=== PATIENT | female | born 1950 | race Two or more races ===

== ENCOUNTER 2016-12-29 11:03 | Inpatient (IN) | payer OTHER ==
[~2016-12-29] VITALS: Ht 160 cm; Wt 62.8 kg
[~2016-12-29 11:03] MED LIST: ALPRAZOLAM1 MG PO; AMLODIPINE BES2.5 M1 PO; AMLODIPINE BESYL5 M1 PO; ATIVAN1 MG PO; BAY PO; HYDROCHLOROTH12.5 M2 PO; LISINOPRIL20 MG PO; ZESTRIL20 MG PO; ZOC20 PO
[2016-12-29 12:17] LABS: UA SPECIFIC GRAVITY 1.025 (1.005-1.035); microscopic required? YES; urine erythrocyte NEGATIVE (NEGATIVE)
[2016-12-29 12:58] LABS: BASOPHIL % 0.5 % (0-2); PLATELET COUNT 163 x10^3mcL (130-400)
[2016-12-29 13:07] LABS: CALCIUM 8.8 mg/dL (8.5-10.1); CARBON DIOXIDE 23.9 mmol/L (21-32); CHLORIDE SERUM 102 mmol/L (98-107); CREATININE SERUM 0.7 mg/dL (0.6-1.0); GFR1 > 60 mL/min; GLUCOSE SERUM 98 mg/dL (74-106); POTASSIUM SERUM 4.3 mmol/L (3.5-5.1); SODIUM SERUM 138 mmol/L (136-145)
[2016-12-29 13:08] LABS: T3 TOTAL 1.18 ng/mL
[2016-12-29 13:11] LABS: ALBUMIN 3.4 g/dL (3.4-5.0); ALKALINE PHOSPHATASE 70 U/L (46-116); ALT/SGPT 83 U/L (14-59); AST/SGOT 166 U/L (15-37); BILIRUBIN TOTAL 0.63 mg/dL (0.20-1.00); LIPASE 149 IU/L (73-393); TRIGLYCERIDES 174 mg/dL (<150)
[2016-12-29 13:13] LABS: CHOLESTEROL 284 mg/dL (<200); CHOLESTEROL/HDL RATIO 3.7; HDL CHOLESTEROL 77 mg/dL (40-60); TOTAL PROTEIN, SERUM 8.8 g/dL (6.4-8.2)
[2016-12-29 13:15] LABS: RED CELL DISTRIBUTION WIDTH 14.8 % (11.5-14.5)
[2016-12-29 13:18] LABS: FREE T4 0.79 ng/dL (0.76-1.46); FREE THYROXINE INDEX 2.4 ug/dL (1.4-4.5); T4(THYROXINE) 6.9 ug/dL (4.7-13.3)
[2016-12-29] MEDS ORDERED: VITAMIN-D1000 IU (16:23)
[2016-12-29] MEDS ORDERED: XANAX0.25 MG (16:24)
[2016-12-29 16:51] LABS: MAGNESIUM 1.7 mg/dL (1.8-2.4); PHOSPHOROUS 3.3 mg/dL (2.5-4.9)
[2016-12-29 17:20] LABS: AMPHETAMINE QUAL UR NONE DETECTED (NEG <=1000)
[2016-12-29 17:22] VITALS: BP 155/100
[2016-12-29 20:47] VITALS: BP 149/91
[2016-12-30] VITALS (8 sets, daily range): BP systolic 127–177; BP diastolic 88–121
[2016-12-30 06:30] LABS: BASOPHIL % 0.5 % (0-2); PLATELET COUNT 153 x10^3mcL (130-400)
[2016-12-30 06:37] LABS: CALCIUM 8.2 mg/dL (8.5-10.1); CARBON DIOXIDE 23.9 mmol/L (21-32); CHLORIDE SERUM 105 mmol/L (98-107); CREATININE SERUM 0.8 mg/dL (0.6-1.0); GFR1 > 60 mL/min; GLUCOSE SERUM 114 mg/dL (74-106); MAGNESIUM 1.7 mg/dL (1.8-2.4); PHOSPHOROUS 3.6 mg/dL (2.5-4.9); SODIUM SERUM 140 mmol/L (136-145)
[2016-12-30 06:38] LABS: RED CELL DISTRIBUTION WIDTH 14.6 % (11.5-14.5)
[2016-12-30 06:48] LABS: POTASSIUM SERUM 2.8 mmol/L (3.5-5.1)
[2016-12-31 05:35] VITALS: BP 183/117
[2016-12-31 06:58] VITALS: BP 147/113
[2016-12-31 09:23] VITALS: BP 146/93
[2016-12-31] MEDS ORDERED: ZES10 PO (13:37)
[2016-12-31 14:02] VITALS: BP 146/93
== END 2016-12-31 16:08 | disposition home or self-care (01) | DRG 551 ==
LOC: ED 11:03 → DU 15:09
PROVIDERS: Specialist; ADMIT Family Medicine
DX: M51.36 Other intervertebral disc degeneration, lumbar region (principal); N17.0 Acute kidney failure with tubular necrosis; I16.1 Hypertensive emergency; N39.0 Urinary tract infection, site not specified; F41.9 Anxiety disorder, unspecified; E83.42 Hypomagnesemia; E83.51 Hypocalcemia; E87.6 Hypokalemia; F10.10 Alcohol abuse, uncomplicated; E78.5 Hyperlipidemia, unspecified; R74.0 Nonspecific elevation of levels of transaminase and lactic acid dehydrogenase [LDH]; Z79.82 Long term (current) use of aspirin; Z68.24 Body mass index [BMI] 24.0-24.9, adult; F17.210 Nicotine dependence, cigarettes, uncomplicated; Z91.14 Patient's other noncompliance with medication regimen
CPT/HCPCS: 72072; 83880; 84439; 97110-GP; 97116-GP; 97530-GP; J0360; J0696; J1885; J2060; J3480; J3490; J7030; Q0092

== ENCOUNTER 2017-11-17 13:41 | Emergency (ER) | payer OTHER ==
[~2017-11-17] VITALS: Ht 160 cm; Wt 59.4 kg
[~2017-11-17 13:41] MED LIST changes: +VITAMIN-D1000 IU; +XANAX0.25 MG; +ZES10 PO
[2017-11-17 13:52] VITALS: BP 116/76; Ht 160 cm; Wt 59.4 kg
== END 2017-11-17 14:42 | disposition home or self-care (01) ==
LOC: ED 13:41
DX: T78.3XXA Angioneurotic edema, initial encounter (principal); G89.29 Other chronic pain; M54.5 Low back pain; F17.210 Nicotine dependence, cigarettes, uncomplicated; I10 Essential (primary) hypertension; F32.9 Major depressive disorder, single episode, unspecified; Z91.010 Allergy to peanuts; Z90.710 Acquired absence of both cervix and uterus
CPT/HCPCS: 99406

== ENCOUNTER 2018-04-09 16:24 | Emergency (ER) | payer OTHER, MEDICAID ==
[2018-04-09 20:13] VITALS: BP 143/72
== END 2018-04-09 20:13 | disposition home or self-care (01) ==
LOC: ED 16:24
DX: F10.129 Alcohol abuse with intoxication, unspecified (principal); G89.29 Other chronic pain; M54.5 Low back pain; I10 Essential (primary) hypertension; F41.9 Anxiety disorder, unspecified; F32.9 Major depressive disorder, single episode, unspecified; Z91.010 Allergy to peanuts
CPT/HCPCS: G0480; J1885; Q0162

== ENCOUNTER 2018-04-28 15:47 | Emergency (ER) | payer OTHER, MEDICAID ==
[~2018-04-28] VITALS: Ht 170.2 cm; Wt 72.6 kg
[2018-04-28 16:02] VITALS: Ht 170.2 cm; Wt 72.6 kg
[2018-04-28 17:14] LABS: BASOPHIL % 0.7 % (0-2); PLATELET COUNT 191 x10^3mcL (130-400); RED CELL DISTRIBUTION WIDTH 14.4 % (11.5-14.5)
[2018-04-28 17:25] LABS: CALCIUM 8.6 mg/dL (8.5-10.1); CARBON DIOXIDE 23.6 mmol/L (21-32); CHLORIDE SERUM 107 mmol/L (98-107); CREATININE SERUM 0.7 mg/dL (0.6-1.0); GFR1 > 60 mL/min; GLUCOSE SERUM 84 mg/dL (74-106); POTASSIUM SERUM 3.8 mmol/L (3.5-5.1); SODIUM SERUM 142 mmol/L (136-145)
[2018-04-28 17:30] LABS: ALBUMIN 3.4 g/dL (3.4-5.0); ALKALINE PHOSPHATASE 60 U/L (46-116); ALT/SGPT 36 U/L (14-59); AST/SGOT 38 U/L (15-37); BILIRUBIN TOTAL 0.1 mg/dL (0.20-1.00)
[2018-04-28 17:33] LABS: TOTAL PROTEIN, SERUM 8.5 g/dL (6.4-8.2)
[2018-04-29 07:57] VITALS: BP 145/99
== END 2018-04-29 07:57 | disposition home or self-care (01) ==
LOC: ED 15:47
PROVIDERS: Emergency Medicine
DX: F10.129 Alcohol abuse with intoxication, unspecified (principal); I10 Essential (primary) hypertension; F32.9 Major depressive disorder, single episode, unspecified; M19.90 Unspecified osteoarthritis, unspecified site; Z91.010 Allergy to peanuts; W01.0XXA Fall on same level from slipping, tripping and stumbling without subsequent striking against object, initial encounter; Y93.89 Activity, other specified; Y92.89 Other specified places as the place of occurrence of the external cause; Y99.8 Other external cause status
CPT/HCPCS: G0480; J3411; J3475; J3490; J7030; Q0092

== ENCOUNTER 2018-09-11 00:08 | Emergency (ER) | payer OTHER, MEDICAID ==
[2018-09-11 00:13] VITALS: Ht 160 cm
[2018-09-11 02:11] VITALS: BP 107/73
== END 2018-09-11 02:10 | disposition home or self-care (01) ==
LOC: ED 00:08
DX: T78.3XXA Angioneurotic edema, initial encounter (principal); I10 Essential (primary) hypertension; E78.00 Pure hypercholesterolemia, unspecified; F32.9 Major depressive disorder, single episode, unspecified; M19.90 Unspecified osteoarthritis, unspecified site; Z91.010 Allergy to peanuts
CPT/HCPCS: J1200; J2060; J2930; J3490

== ENCOUNTER 2018-09-22 13:34 | Emergency (ER) | payer OTHER, MEDICAID ==
[~2018-09-22] VITALS: Ht 160 cm; Wt 60.4 kg
[2018-09-22 14:03] VITALS: BP 140/93; Ht 160 cm; Wt 60.4 kg
== END 2018-09-22 17:29 | disposition home or self-care (01) ==
LOC: ED 13:34
DX: K13.79 Other lesions of oral mucosa (principal); I10 Essential (primary) hypertension; E78.00 Pure hypercholesterolemia, unspecified; F32.9 Major depressive disorder, single episode, unspecified; M19.90 Unspecified osteoarthritis, unspecified site; Z91.010 Allergy to peanuts; W06.XXXA Fall from bed, initial encounter; Y93.89 Activity, other specified; Y92.89 Other specified places as the place of occurrence of the external cause; Y99.8 Other external cause status

== ENCOUNTER 2018-09-26 13:35 | Emergency (ER) | payer OTHER, MEDICAID ==
[~2018-09-26] VITALS: Ht 160 cm; Wt 57.2 kg
[2018-09-26 13:44] VITALS: Ht 160 cm; Wt 57.2 kg
[2018-09-26 15:00] LABS: BASOPHIL % 0.3 % (0-2); PLATELET COUNT 183 x10^3mcL (130-400)
[2018-09-26 15:07] LABS: ALBUMIN 3.6 g/dL (3.4-5.0); ALKALINE PHOSPHATASE 81 U/L (46-116); ALT/SGPT 35 U/L (14-59); AST/SGOT 38 U/L (15-37); BILIRUBIN TOTAL 0.4 mg/dL (0.20-1.00); CALCIUM 8.4 mg/dL (8.5-10.1); CARBON DIOXIDE 22.3 mmol/L (21-32); CHLORIDE SERUM 103 mmol/L (98-107); CREATININE SERUM 0.8 mg/dL (0.6-1.0); GFR1 > 60 mL/min; GLUCOSE SERUM 108 mg/dL (74-106); SODIUM SERUM 144 mmol/L (136-145)
[2018-09-26 15:13] LABS: TOTAL PROTEIN, SERUM 8.4 g/dL (6.4-8.2)
[2018-09-26 15:14] LABS: POTASSIUM SERUM 2.8 mmol/L (3.5-5.1)
[2018-09-26 19:55] VITALS: BP 136/104
== END 2018-09-26 20:22 | disposition home or self-care (01) ==
LOC: ED 13:35
PROVIDERS: Emergency Medicine
DX: F10.129 Alcohol abuse with intoxication, unspecified (principal); E87.6 Hypokalemia; R53.1 Weakness; K13.0 Diseases of lips; I10 Essential (primary) hypertension; F32.9 Major depressive disorder, single episode, unspecified; E78.00 Pure hypercholesterolemia, unspecified; M19.90 Unspecified osteoarthritis, unspecified site; Z91.010 Allergy to peanuts; Y90.8 Blood alcohol level of 240 mg/100 ml or more
CPT/HCPCS: G0480; J3480; J7050; Q0092

== ENCOUNTER 2019-04-21 14:40 | Emergency (ER) | payer OTHER ==
[~2019-04-21] VITALS: Ht 160 cm; Wt 54.4 kg
[2019-04-21 14:45] VITALS: Ht 160 cm; Wt 54.4 kg
[2019-04-21 15:56] LABS: BASOPHIL % 0.6 % (0-2); PLATELET COUNT 171 x10^3mcL (130-400)
[2019-04-21 15:57] LABS: RED CELL DISTRIBUTION WIDTH 14.9 % (11.5-14.5)
[2019-04-21 16:29] LABS: CALCIUM 8.5 mg/dL (8.5-10.1); CARBON DIOXIDE 26.1 mmol/L (21-32); CHLORIDE SERUM 109 mmol/L (98-107); CREATININE SERUM 0.8 mg/dL (0.6-1.0); GFR1 > 60 mL/min; GLUCOSE SERUM 95 mg/dL (74-106); POTASSIUM SERUM 3.8 mmol/L (3.5-5.1); SODIUM SERUM 145 mmol/L (136-145)
[2019-04-21 16:42] LABS: ALKALINE PHOSPHATASE 76 U/L (46-116); ALT/SGPT 24 U/L (14-59); AST/SGOT 24 U/L (15-37); BILIRUBIN TOTAL 0.1 mg/dL (0.20-1.00); LIPASE 201 IU/L (73-393); TOTAL PROTEIN, SERUM 7.7 g/dL (6.4-8.2)
[2019-04-21 16:47] LABS: ALBUMIN 3.3 g/dL (3.4-5.0)
[2019-04-21 20:26] VITALS: BP 142/96
== END 2019-04-21 20:26 | disposition home or self-care (01) ==
LOC: ED 14:40
PROVIDERS: Emergency Medicine
DX: F10.129 Alcohol abuse with intoxication, unspecified (principal); I71.4 Abdominal aortic aneurysm, without rupture; I10 Essential (primary) hypertension; M19.90 Unspecified osteoarthritis, unspecified site; E78.00 Pure hypercholesterolemia, unspecified; F32.9 Major depressive disorder, single episode, unspecified; Z91.010 Allergy to peanuts; Y90.9 Presence of alcohol in blood, level not specified
CPT/HCPCS: 36415; Q0092

== ENCOUNTER 2019-05-17 11:51 | Emergency (ER) | payer OTHER ==
[~2019-05-17] VITALS: Ht 160 cm; Wt 63.5 kg
[2019-05-17 12:08] VITALS: Ht 160 cm; Wt 63.5 kg
[2019-05-17 14:20] LABS: PLATELET COUNT 145 x10^3mcL (130-400)
[2019-05-17 14:24] LABS: BASOPHIL % 0 % (0-2); RED CELL DISTRIBUTION WIDTH 14.9 % (11.5-14.5)
[2019-05-17 15:12] LABS: CALCIUM 9.7 mg/dL (8.5-10.1); CARBON DIOXIDE 26.4 mmol/L (21-32); CHLORIDE SERUM 100 mmol/L (98-107); CREATININE SERUM 0.7 mg/dL (0.6-1.0); GFR1 > 60 mL/min; GLUCOSE SERUM 130 mg/dL (74-106); POTASSIUM SERUM 3.8 mmol/L (3.5-5.1); SODIUM SERUM 142 mmol/L (136-145)
[2019-05-17 15:16] LABS: ALKALINE PHOSPHATASE 92 U/L (46-116); ALT/SGPT 27 U/L (14-59); AST/SGOT 33 U/L (15-37); BILIRUBIN TOTAL 0.5 mg/dL (0.20-1.00); MAGNESIUM 1.5 mg/dL (1.8-2.4)
[2019-05-17 15:17] LABS: CHOLESTEROL 290 mg/dL (<200); HDL CHOLESTEROL 126 mg/dL (40-60); TOTAL PROTEIN, SERUM 9.3 g/dL (6.4-8.2)
[2019-05-17 19:20] VITALS: BP 158/98
== END 2019-05-17 19:20 | disposition short-term general hospital (02) ==
LOC: ED 11:51
PROVIDERS: Emergency Medicine
DX: R53.1 Weakness (principal); E83.42 Hypomagnesemia; G89.29 Other chronic pain; M54.5 Low back pain; M54.2 Cervicalgia; I10 Essential (primary) hypertension; M19.90 Unspecified osteoarthritis, unspecified site; E78.00 Pure hypercholesterolemia, unspecified; Z91.010 Allergy to peanuts
CPT/HCPCS: G0480; J2060; J3411; J3475; J7030; Q0092

== ENCOUNTER 2019-06-16 14:07 | Emergency (ER) | payer OTHER ==
[~2019-06-16] VITALS: Ht 160 cm; Wt 61.7 kg
[2019-06-16 14:21] VITALS: Ht 160 cm; Wt 61.7 kg
[2019-06-16 15:01] LABS: BASOPHIL % 0.3 % (0-2); PLATELET COUNT 166 x10^3mcL (130-400); RED CELL DISTRIBUTION WIDTH 15.1 % (11.5-14.5)
[2019-06-16 15:22] LABS: ALBUMIN 3.4 g/dL (3.4-5.0); CALCIUM 8.8 mg/dL (8.5-10.1); CARBON DIOXIDE 26.2 mmol/L (21-32); CHLORIDE SERUM 102 mmol/L (98-107); CREATININE SERUM 0.9 mg/dL (0.6-1.0); GLUCOSE SERUM 103 mg/dL (74-106); POTASSIUM SERUM 3.7 mmol/L (3.5-5.1); SODIUM SERUM 140 mmol/L (136-145); TOTAL PROTEIN, SERUM 8.5 g/dL (6.4-8.2)
[2019-06-16 15:23] LABS: ALKALINE PHOSPHATASE 89 U/L (46-116); ALT/SGPT 23 U/L (14-59); AST/SGOT 29 U/L (15-37); BILIRUBIN TOTAL 0.53 mg/dL (0.20-1.00); MAGNESIUM 1.8 mg/dL (1.8-2.4)
[2019-06-16 15:30] LABS: UA SPECIFIC GRAVITY <=1.005 (1.005-1.035); microscopic required? YES; urine erythrocyte NEGATIVE (NEGATIVE)
[2019-06-16 16:51] VITALS: BP 154/95
== END 2019-06-16 16:51 | disposition home or self-care (01) ==
LOC: ED 14:07
PROVIDERS: Emergency Medicine
DX: R53.1 Weakness (principal); N39.0 Urinary tract infection, site not specified
CPT/HCPCS: 87804; 99406; G0480; J0696; J7030; Q0092